=== PATIENT | male | born 1960 | race Caucasian/White ===

== ENCOUNTER 2024-02-04 10:05 | Emergency (ER) | payer BC ==
[~2024-02-04] VITALS: Ht 172.7 cm; Wt 99.3 kg
[2024-02-04] MEDS ORDERED: GLIP5TAB20 PO (10:18)
[2024-02-04] MEDS ORDERED: LISI20TA33 PO (10:19)
[2024-02-04 11:09] LABS: BASO # 0.1 10^3/uL (0.0-0.2); BASO % 0.7 % (0.0-1.0); EOS # 0.2 10^3/uL (0.0-0.5); EOS % 2.7 % (0.0-3.0); HEMATOCRIT 39.3 % (42.0-52.0); HEMOGLOBIN 13.4 g/dl (13.5-17.5); LYMPH # 1.8 10^3/uL (1.5-5.0); LYMPH % 25.7 % (24.0-44.0); MEAN CORPUSCULAR HGB CONC 34.1 g/dl (32.0-36.5); MEAN CORPUSCULAR VOLUME 93.8 fl (80.0-96.0); MONO # 0.7 10^3/uL (0.0-0.8); MONO % 9.4 % (2.0-8.0); NEUTROPHILS # 4.4 10^3/uL (1.5-8.5); NEUTROPHILS % 61.2 % (36.0-66.0); PLATELET COUNT, AUTOMATED 258 10^3/uL (150-450); RED BLOOD COUNT 4.19 10^6/uL (4.30-6.10); WHITE BLOOD COUNT 7.1 10^3/uL (4.0-10.0)
[2024-02-04 11:21] LABS: CPK CREATINE PHOSPHOKINASE 252 U/L (46-171)
[2024-02-04 11:22] LABS: BLOOD UREA NITROGEN 29 MG/DL (9-23); CALCIUM LEVEL 10.5 MG/DL (8.3-10.6); CARBON DIOXIDE LEVEL 24 MMOL/L (20-31); CHLORIDE LEVEL 104 MMOL/L (98-107); CREATININE FOR GFR 0.98 MG/DL (0.70-1.30); GLOMERULAR FILTRATION RATE > 60.0 (>49); GLUCOSE, FASTING 178 MG/DL (74-106); MB/CK RELATIVE INDEX 1.58 (< OR =4); SODIUM LEVEL 134 MMOL/L (136-145)
[2024-02-04] MEDS ORDERED: ISOVUE-370 76% 100ML VIAL As Ordered ONE (12:02)
[2024-02-04 12:36] LABS: CK-MB VALUE MASS 3.3 NG/ML (<3.6); MB/CK RELATIVE INDEX 1.4 (< OR =4)
[2024-02-04] MEDS ORDERED: FENO134C20 PO (13:59)
[2024-02-04] MEDS ORDERED: ROSU20TA61 PO (13:59)
[2024-02-04] MEDS ORDERED: METF500T13 PO (13:59)
[2024-02-04] MEDS ORDERED: GLIP2.5T6 PO (13:59)
[2024-02-04] MEDS ORDERED: HOME MED LIST COMPLETE! XX SCH (14:00)
[2024-02-04] MEDS ORDERED: PRESCAP PO (15:07)
[2024-02-04] MEDS ORDERED: HEPARIN SOD (PORCINE) 5000UNITS/ML 1ML VIAL/SYRINGE IV PRN (17:20)
[2024-02-04] MEDS: HEPARIN SOD (PORCINE) 5000UNITS/ML 1ML VIAL/SYRINGE IV ONE (17:44)
[2024-02-04] MEDS: ASPIRIN 81MG CHEW TABLET PO ONE (17:46)
[2024-02-04] MEDS: HEPARIN DRIP 25,000 UNITS in IV 1 EA IV SCH (17:46)
[2024-02-04 17:57] LABS: INR 1.04; PARTIAL THROMBOPLASTIN TIME 26.3 SECONDS (24.8-34.2); PROTHROMBIN TIME 13.3 SECONDS (12.5-14.5)
[2024-02-04 20:45] VITALS: O2SAT 96
[2024-02-04 20:52] VITALS: BP 126/64; TEMP 97.9
== END 2024-02-04 21:02 | disposition short-term general hospital (02) ==
LOC: M ED 10:05 → EDBD 10:05 → M ED 21:02
DX: I20.0 Unstable angina (principal); E11.9 Type 2 diabetes mellitus without complications; I10 Essential (primary) hypertension; E78.5 Hyperlipidemia, unspecified; F10.10 Alcohol abuse, uncomplicated; Z79.1 Long term (current) use of non-steroidal anti-inflammatories (NSAID); Z79.84 Long term (current) use of oral hypoglycemic drugs; Z79.899 Other long term (current) drug therapy
CPT/HCPCS: 70450; 71045; 71275; 80048; 82550; 82553; 84484; 85025; 85610; 85730; 93005; 93041; 94760; 96365; 96366; 96374; 99285; Q9967

== ENCOUNTER 2024-02-07 08:55 | Emergency (ER) | payer BC ==
[~2024-02-07] VITALS: Ht 172.7 cm; Wt 98.2 kg
[~2024-02-07 08:55] MED LIST: FENO134C20 PO; GLIP2.5T6 PO; GLIP5TAB20 PO; LISI20TA33 PO; METF500T13 PO; PRESCAP PO; ROSU20TA61 PO
[2024-02-07] MEDS ORDERED: ASPI81TA26 PO (09:07)
[2024-02-07] MEDS ORDERED: CARV3.12 PO (09:11)
[2024-02-07] MEDS ORDERED: PRAS10TA2 PO (09:11)
[2024-02-07] MEDS ORDERED: 12 H0.05 (10:23)
[2024-02-07] MEDS ORDERED: SODI88SP NARES (10:23)
[2024-02-07] MEDS ORDERED: BACI500O21 TOP (10:23)
[2024-02-07 10:35] VITALS: BP 124/73; TEMP 97.3; O2SAT 98
== END 2024-02-07 10:37 | disposition home or self-care (01) ==
LOC: M ED 08:55
DX: R04.0 Epistaxis (principal); I25.119 Atherosclerotic heart disease of native coronary artery with unspecified angina pectoris; E11.9 Type 2 diabetes mellitus without complications; I10 Essential (primary) hypertension; E78.5 Hyperlipidemia, unspecified; Z79.1 Long term (current) use of non-steroidal anti-inflammatories (NSAID); Z79.2 Long term (current) use of antibiotics; Z79.84 Long term (current) use of oral hypoglycemic drugs; Z79.899 Other long term (current) drug therapy